=== PATIENT | female | born 1990 | race Caucasian/White ===

== ENCOUNTER → 2020-06-16 15:55 | Outpatient (BNVA) | payer OTHER, SELFPAY | PROVIDERS: PCP Internal Medicine; Visit Provider Obstetrics & Gynecology ==

== ENCOUNTER → 2020-08-26 10:26 | Outpatient (BNVA) | payer OTHER, SELFPAY | PROVIDERS: PCP Internal Medicine; Visit Provider Obstetrics & Gynecology | DX: Z34.90 Encounter for supervision of normal pregnancy, unspecified, unspecified trimester (principal) | CPT/HCPCS: 99212 ==

== ENCOUNTER 2020-08-28 09:52 | Outpatient (REF) | payer OTHER, SELFPAY ==
--- NOTE | ~2020-08-28 | US_ITS ---
EXAMINATION: OBSTETRICAL ULTRASOUND, FIRST TRIMESTER HISTORY: 30-year-old with uncertain LMP Viability date evaluation of LMP: Unknown COMPARISON: None TECHNIQUE: Real time transabdominal imaging with color and M-mode Doppler. FINDINGS: A single, live IUP CRL of 8.2 mm c/w 6.6wks is noted. Heart Rate: 129 beats per minute. Both maternal ovaries are seen and appear normal. GESTATIONAL AGE: 1. GA from LMP: N/A wks 2. GA from AUA: 6.6 wks ESTIMATED DATE OF DELIVERY: 1. CARMINE from LMP: N/A 2. CARMINE from AUA: 04/17/2021 US/US OB <= 14 weeks fetus IMPRESSION: 1. A single live IUP 2. CRL is consistent with 6 weeks and 6 days giving her an CARMINE of 04/17/2021 3. Normal ovaries without free fluid in the cul-de-sac. She is scheduled for the NT evaluation in approximately 6 weeks. Thank you very much for this referral. This note was generated with a voice recognition program. Please excuse any errors which may have been overlooked during my review of this note. Sometimes these errors may affect the content or meaning of a given sentence.
== END 2020-08-28 09:53 | disposition home or self-care (01) ==
LOC: HO.US 09:52
PROVIDERS: PCP Internal Medicine; Visit Provider Obstetrics & Gynecology
DX: Z34.90 Encounter for supervision of normal pregnancy, unspecified, unspecified trimester (principal); Z36.87 Encounter for antenatal screening for uncertain dates
CPT/HCPCS: 76801

== ENCOUNTER → 2020-09-01 11:33 | Outpatient (BNVA) | payer OTHER, SELFPAY | PROVIDERS: PCP Internal Medicine; Visit Provider Obstetrics & Gynecology ==

== ENCOUNTER → 2020-09-03 09:40 | Outpatient (BNVA) | payer OTHER, SELFPAY | PROVIDERS: PCP Internal Medicine; Visit Provider Nurse Practitioner ==

== ENCOUNTER 2020-09-28 09:54 | Outpatient (REF) | payer OTHER, SELFPAY ==
[2020-09-28 12:17] LABS: Hematocrit 41.4 % (37-47); Hemoglobin 13.4 g/dl (12.0-16.0); Mean Corpuscular HGB Conc 32.4 g/dl (31.0-35.0); Mean Corpuscular Hemoglobin 26.1 pg (27.0-33.0); Mean Corpuscular Volume 80.7 fL (80-98); Platelet Count 286 X10*3/uL (160-400); Red Blood Count 5.13 X10*6/uL (4.20-5.50); Red Cell Distribution Width 13.3 % (11.0-16.0); White Blood Count 7.8 X10*3/uL (4.8-10.8)
[2020-09-28 12:44] LABS: Alanine Aminotransferase 14 U/L (0-31); Albumin Level 4.2 g/dL (3.5-5.0); Alkaline Phosphatase 59 U/L (39-117); Anion Gap 12 (12-20); Aspartate Amino Transferase 15 U/L (5-31); Bilirubin Total 0.6 mg/dL (0.0-1.0); Blood Urea Nitrogen 9 mg/dL (9-16); Calcium 9.9 mg/dL (8.4-10.2); Carbon Dioxide 23 mmol/L (22-29); Chloride 104 mmol/L (96-108); Estimated Glomerular Filt Rate > 60; Glucose Random 82 mg/dL (60-115); Sodium 135 mmol/L (135-145); Total Protein 7.4 g/dL (6.5-8.0)
[2020-09-28 12:58] LABS: Syphilis Screen Nonreactive (Nonreactive)
[2020-09-28 13:12] LABS: Amphetamine Screen Urine Not Detected (Not Detect); Barbiturates, Urine Not Detected (Not Detect); Benzodiazepines Screen Urine Not Detected (Not Detect); Cannabinoid Screen Urine POSITIVE (Not Detect); Cocaine Screen Urine Not Detected (Not Detect); Opiate Screen Urine Not Detected (Not Detect); Phencyclidine Screen Urine Not Detected (Not Detect)
[2020-09-29 05:09] LABS: HIV AB/AG Nonreactive (Nonreactive); HIV Num 1 0.09 S/CO (0.00-0.99)
[2020-09-29 05:15] LABS: Hepatitis B Surface Antigen Negative (Negative); ~HepC Num1 0.12 S/CO (0.00-0.79); ~Hepatitis C Antibody Nonreactive (Nonreactive)
[2020-09-29 11:42] LABS: Alpha Fetoprotein 6.3 ng/mL
[2020-09-29 13:16] LABS: Rubella IgG Antibody 3.81 Index
== END 2020-09-28 09:55 | disposition home or self-care (01) ==
LOC: HO.LAB 09:54
PROVIDERS: Nurse Practitioner; PCP Internal Medicine; Visit Provider Advanced Practice Midwife
DX: O26.891 Other specified pregnancy related conditions, first trimester (principal); O99.211 Obesity complicating pregnancy, first trimester; R10.10 Upper abdominal pain, unspecified; R13.12 Dysphagia, oropharyngeal phase; E66.9 Obesity, unspecified; K21.9 Gastro-esophageal reflux disease without esophagitis; K75.81 Nonalcoholic steatohepatitis (NASH); Z3A.11 11 weeks gestation of pregnancy
CPT/HCPCS: 36415; 80053; 80307; 82105; 85027; 86762; 86780; 86787; 86803; 86850; 86900; 86901; 87086; 87340; 87389; 99212

== ENCOUNTER 2020-10-02 08:55 | Outpatient (REF) | payer OTHER, SELFPAY ==
--- NOTE | ~2020-10-02 | US_ITS ---
EXAMINATION: OBSTETRICAL ULTRASOUND, FIRST TRIMESTER HISTORY: 30-year-old at 11.6 weeks of gestation NT screening COMPARISON: 08/28/2020 TECHNIQUE: Real time transabdominal imaging with color and M-mode Doppler. FINDINGS: A single, live IUP CRL of 54.5 mm c/w 12.1wks is noted. Heart Rate: 167 beats per minute. Normal yolk sac seen. NT was 1.9.mm. NB Present The embryo appears sonographically wnl for this GA. Both maternal ovaries are seen and appear normal. GESTATIONAL AGE: 1. Established GA: 11.6 wks 2. GA from AUA: 12.1 wks ESTIMATED DATE OF DELIVERY: 1. Established CARMINE: 04/17/2021 2. CARMINE from AUA: 04/15/2021 US/US OB 1T nuc measure IMPRESSION: 1. A single live IUP 2. Size equals dates 3. NT of 1.9 mm MFM Consultation: I reviewed the ultrasound findings along with significance of NT measurement. The NT of less than 3mm is generally reassuring. However, the sensitivity for T21 detection is only 60%. I reviewed the availability of serum aneuploidy screening which includes cell-free DNA and placental protein based tests. I discussed the sensitivity, false-positive rate, and other limitations associated with each test. I also reviewed the availability of invasive diagnostic tests that are associated small but definite risk of miscarriage. We also reviewed the differences between screening tests and diagnostic tests. After our discussion, she opted for the First trimester screening that is based on cell-free DNA or non-invasive testing (NIPT). The result will be faxed to your office in approximately 7 days. A follow up at 18 weeks for survey has been scheduled. Thank you very much for this referral. Total time 30 minutes. The time spent was devoted to counseling the patient about the disease and diagnosis, coordinating care including reviewing her records, pertinent lab data and studies, as well as discussing diagnostic evaluation and workup, plan therapeutic interventions and future disposition of care. This includes any additional research needed to obtain further information in formulating the plan of care of this patient. This note was generated with a voice recognition program. Please excuse any errors which may have been overlooked during my review of this note. Sometimes these errors may affect the content or meaning of a given sentence.
== END 2020-10-02 08:56 | disposition home or self-care (01) ==
LOC: HO.US 08:55
PROVIDERS: PCP Internal Medicine; Visit Provider Advanced Practice Midwife
DX: Z34.91 Encounter for supervision of normal pregnancy, unspecified, first trimester (principal); Z3A.11 11 weeks gestation of pregnancy
CPT/HCPCS: 76813

== ENCOUNTER 2020-10-14 05:55 | Emergency (ER) | payer OTHER, SELFPAY ==
[2020-10-14 06:28] VITALS: BP 133/81; PULSE 89; RESP 18; TEMP 36.1; O2SAT 98; BMI 40.1
--- NOTE | 2020-10-14 06:34 | ED_ITS ---
HPI - Allergic Reaction General Chief complaint: Allergic Reaction Stated complaint: allergic reaction to medication, 13 weeks Time Seen by Provider: 10/14/20 06:34 Source: patient Mode of arrival: ambulatory Limitations: no limitations History of Present Illness HPI narrative: 13 weeks otherwise healthy tried women's once a day this time for her PNV - no prior ingestions and for the last month has had diffuse hives and bruising - PCP started her on triamcinolone without relief MD complaint: hives and other (bruising) Onset (ago): month(s) (1) Exposure: unknown Symptoms: rash and itching Severity: moderate Treatment prior to arrival: other (topical triamcinolone) Previous Allergic Reaction History: none Related Data Home Medications Medication Instructions Recorded Confirmed sertraline 50 mg tablet 75 mg PO DAILY 06/16/20 10/12/20 prenat.vits,brittney,[id number] 1 tab PO DAILY 09/01/20 10/12/20 Previous Rx's Medication Instructions Recorded cimetidine 400 mg tablet 400 mg PO BEDTIME 30 Days #30 tab 09/03/20 sucralfate 1 gram tablet 2 g PO .daily ac supper 30 Days 09/03/20 #60 tab diphenhydramine HCl 25 mg tablet 25 mg PO Q12H 3 Days #6 tab 10/06/20 betamethasone valerate 0.1 % 1 appl TOPICAL BID 7 Days #45 g 10/08/20 topical cream cetirizine 10 mg tablet 10 mg PO DAILY PRN 30 Days #30 tab 10/12/20 triamcinolone acetonide 0.1 % 1 appl TOPICAL DAILY 10 Days #454 g 10/12/20 topical cream prednisone 40 mg PO DAILY 5 Days #10 tab 10/14/20 Allergies Allergy/AdvReac Type Severity Reaction Status Date / Time fluoxetine [FLUOXETINE] Allergy Severe LOCKJAW, Verified 10/14/20 06:30 jaw locked Penicillins [PENICILLINS] Allergy Intermediate RASH Verified 10/14/20 06:30 penicillin V Allergy Unknown rash Verified 10/14/20 06:30 Review of Systems Review of Systems: Constitutional : No Fever, No Chills ENT/Mouth : no oral swelling, No Hoarseness, No Swallowing Difficulty Eyes: No Eye Pain, No Swelling, No Redness Cardiovascular : No Chest Pain, No SOB Respiratory : No Cough, No Sputum, No Wheezing, No Smoke Exposure, No Dyspnea Gastrointestinal : No Nausea, No Vomiting, No Diarrhea, No abdominal Pain Genitourinary : No Dysuria, No Urinary Frequency, No Hematuria Musculoskeletal : No joint pain, No Myalgias, No Joint Swelling Skin : pos Skin Lesions, positive rash Neuro : No Weakness, No Numbness, No Headache Psych : No Anxiety/Panic, No Depression Heme/Lymph: pos Bruising, No Lymphadenopathy Endocrine : No Polyuria, No Polydipsia All other systems reviewed and are negative [facility] Past Medical History Attestation statement: The following information was validated with the patient. Medical History Anxiety Depression Rash Surgical History H/O esophagogastroduodenoscopy History of surgery Family History Family History Father Diabetes Mother Asthma Maternal Grandmother No problems noted. Son In good health Son In good health Brother Autism Sister In good health Social History Social History Household Members: Significant Other, Family and Children Housing: House Alcohol intake: never Patient Tobacco Use Status: Never used Tobacco Tobacco use type: Cigarette Advance Directives: No Patient : Yes (13 WEEKS) Current occupational status: unemployed Gender identity: female Physical Exam Vital Signs: Vital Signs: Last Vital Signs Temp 96.9 F 10/14/20 06:28 Pulse 89 10/14/20 06:28 Resp 18 10/14/20 06:28 BP 133/81 10/14/20 06:28 Pulse Ox 98 10/14/20 06:28 Body Mass Index 40.1 Appearance: Alert. Oriented X3. No acute distress. Eyes: Pupils equal, round and reactive to light. ENT: Pharynx normal. Neck: Normal inspection. Neck supple. CVS: Normal heart rate and rhythm. Pulses normal. Respiratory: No respiratory distress. Breath sounds normal. Abdomen: Soft and nontender. Skin: Skin warm and dry. areas of linear bruising and stria along with raised papules in large / small groups - patient is covered except for face and neck/hands/feet Extremities: No lower extremity edema. No calf ttp Neuro: Oriented X 3. No motor deficit. No sensory deficit. Course Course Course Narrative: plts coags normal LFTs normal, eosinophils high will start on low dose prednisone for 5 days and refer to OBGYN MDM - Allergic Reaction MDM Narrative Medical decision making narrative: 30 yo female with eruption of bruising/papules unsure if this is PUPP or another dermatologic issue - no mucosal involvement, at this time plts, LFTs ordered she has not seen her OB yet, will likely need oral steroids vs topical steroids at this time, she is 13 weeks has no OB related complaints Lab Data Result diagrams: 10/14/20 07:10/14/20 07:23 Labs: Lab Results 10/14/20 10/14/20 10/14/20 Range/Units 07: 07: 07:23 WBC 7.1 (4.8-10.8) X10*3/uL RBC 4.78 (4.20-5.50) X10*6/uL Hgb 12.6 (12.0-16.0) g/dl Hct 39.0 (37-47) % MCV 81.6 (80-98) fL MCH 26.4 L (27.0-33.0) pg MCHC 32.3 (31.0-35.0) g/dl RDW 13.7 (11.0-16.0) % Plt Count 214 D (160-400) X10*3/uL MPV 9.3 L (9.4-12.3) fL Immature Gran % (Auto) 0.1 (0.0-0.4) % Neut % (Auto) 73.5 H (45-73) % Lymph % (Auto) 14.4 L (20-40) % [place] % (Auto) 6.5 (2-11) % Eos % (Auto) 5.2 H (0-4) % Baso % (Auto) 0.3 (0-2) % Lymph # (Auto) 1.0 L (1.2-4.9) X10*3/uL [place] # (Auto) 0.5 (0.1-1.2) X10*3/uL Eos # (Auto) 0.4 (0.0-0.4) X10*3/uL Baso # (Auto) 0.0 (0.0-0.2) X10*3/uL Abs Immat Gran (auto) 0.01 (0.00-0.03) X10*3/uL Absolute Neuts (auto) 5.2 (2.0-8.3) X10*3/uL Absolute Nucleated RBC 0.000 (0.0-0.012) X10*3/uL Nucleated RBC % (auto) 0.0 (0.0-0.2) /100WBC ESR 17 (0-20) MM/HR PT (9.9-13.0) SEC INR (0.9-1.1) APTT (24.1-38.0) SEC Sodium 137 (135-145) mmol/L Potassium 4.0 (3.3-5.1) mmol/L Chloride 104 (96-108) mmol/L Carbon Dioxide 23 (22-29) mmol/L Anion Gap 14 (12-20) BUN 6 L (9-16) mg/dL Creatinine 0.72 (0.5-1.4) mg/dL Estim Creat Clear Calc 151.7 Estimated GFR > 60 Random Glucose 97 (60-115) mg/dL Calcium 9.3 D (8.4-10.2) mg/dL Total Bilirubin 0.6 (0.0-1.0) mg/dL Direct Bilirubin 0.2 (0.0-0.5) mg/dL AST 15 (5-31) U/L ALT 14 (0-31) U/L Alkaline Phosphatase 52 (39-117) U/L C-Reactive Protein (< or = 0.50) mg/dL Total Protein 6.5 (6.5-8.0) g/dL Albumin 3.6 (3.5-5.0) g/dL 10/14/20 10/14/20 Range/Units 07:23 07:23 WBC (4.8-10.8) X10*3/uL RBC (4.20-5.50) X10*6/uL Hgb (12.0-16.0) g/dl Hct (37-47) % MCV (80-98) fL MCH (27.0-33.0) pg MCHC (31.0-35.0) g/dl RDW (11.0-16.0) % Plt Count (160-400) X10*3/uL MPV (9.4-12.3) fL Immature Gran % (Auto) (0.0-0.4) % Neut % (Auto) (45-73) % Lymph % (Auto) (20-40) % [place] % (Auto) (2-11) % Eos % (Auto) (0-4) % Baso % (Auto) (0-2) % Lymph # (Auto) (1.2-4.9) X10*3/uL [place] # (Auto) (0.1-1.2) X10*3/uL Eos # (Auto) (0.0-0.4) X10*3/uL Baso # (Auto) (0.0-0.2) X10*3/uL Abs Immat Gran (auto) (0.00-0.03) X10*3/uL Absolute Neuts (auto) (2.0-8.3) X10*3/uL Absolute Nucleated RBC (0.0-0.012) X10*3/uL Nucleated RBC % (auto) (0.0-0.2) /100WBC ESR (0-20) MM/HR PT 11.5 (9.9-13.0) SEC INR 1.0 (0.9-1.1) APTT 30.2 (24.1-38.0) SEC Sodium (135-145) mmol/L Potassium (3.3-5.1) mmol/L Chloride (96-108) mmol/L Carbon Dioxide (22-29) mmol/L Anion Gap (12-20) BUN (9-16) mg/dL Creatinine (0.5-1.4) mg/dL Estim Creat Clear Calc Estimated GFR Random Glucose (60-115) mg/dL Calcium (8.4-10.2) mg/dL Total Bilirubin (0.0-1.0) mg/dL Direct Bilirubin (0.0-0.5) mg/dL AST (5-31) U/L ALT (0-31) U/L Alkaline Phosphatase (39-117) U/L C-Reactive Protein 2.14 H (< or = 0.50) mg/dL Total Protein (6.5-8.0) g/dL Albumin (3.5-5.0) g/dL Discharge Plan Discharge Clinical Impression: Hives, Ecchymosis Patient Disposition: Home, Self-Care Instructions: Urticaria (ED) Additional Instructions: return to ED for any worsening symptoms or concerns PLEASE CALL YOUR OBGYN SOON POSSIBLE FOR APPOINTMENT Prescriptions: New prednisone 20 mg tablet 40 mg PO DAILY 5 Days Qty: 10 RF: 0 No Action betamethasone valerate 0.1 % cream 1 appl topical BID 7 Days Qty: 45 RF: 0 diphenhydramine HCl [Benadryl Allergy] 25 mg tablet 25 mg PO Q12H 3 Days Qty: 6 RF: 0 triamcinolone acetonide 0.1 % cream 1 appl topical DAILY 10 Days Qty: 454 RF: 2 cetirizine [Zyrtec] 10 mg tablet 10 mg PO DAILY PRN (Reason: allergy symptoms) 30 Days Qty: 30 RF: 1 sucralfate [Carafate] 1 gram tablet 2 g PO .daily ac supper 30 Days Qty: 60 RF: 3 cimetidine 400 mg tablet 400 mg PO BEDTIME 30 Days Qty: 30 RF: 3 sertraline 50 mg tablet 75 mg PO DAILY RF: 0 prenat.vits,brittney,[id number] Tablet 1 tab PO DAILY RF: 0
[2020-10-14 07:29] LABS: MANUAL DIFF FLAG NO
[2020-10-14 07:30] LABS: Basophils Percent Auto 0.3 % (0-2); Eosinophils Absolute Auto 0.4 X10*3/uL (0.0-0.4); Eosinophils Percent Auto 5.2 % (0-4); Hemoglobin 12.6 g/dl (12.0-16.0); Imm Gran Abs Auto 0.01 X10*3/uL (0.00-0.03); Imm Gran Pct Auto 0.1 % (0.0-0.4); Lymphocytes Percent Auto 14.4 % (20-40); Mean Corpuscular HGB Conc 32.3 g/dl (31.0-35.0); Mean Corpuscular Hemoglobin 26.4 pg (27.0-33.0); Mean Corpuscular Volume 81.6 fL (80-98); Mean Platelet Volume 9.3 fL (9.4-12.3); Monocytes Absolute Auto 0.5 X10*3/uL (0.1-1.2); Monocytes Percent Auto 6.5 % (2-11); Neutrophils Absolute Auto 5.2 X10*3/uL (2.0-8.3); Neutrophils Percent Auto 73.5 % (45-73); Platelet Count 214 X10*3/uL (160-400); Red Blood Count 4.78 X10*6/uL (4.20-5.50); Red Cell Distribution Width 13.7 % (11.0-16.0); White Blood Count 7.1 X10*3/uL (4.8-10.8)
[2020-10-14 07:44] LABS: Prothrombin Time 11.5 SEC (9.9-13.0)
[2020-10-14 07:46] LABS: Partial Thromboplastin Time 30.2 SEC (24.1-38.0)
[2020-10-14 08:00] VITALS: BP 130/77; PULSE 90; TEMP 36.2; O2SAT 100
[2020-10-14 08:04] LABS: C Reactive Protein 2.14 mg/dL (< or = 0.50)
[2020-10-14 08:06] LABS: Alanine Aminotransferase 14 U/L (0-31); Albumin Level 3.6 g/dL (3.5-5.0); Alkaline Phosphatase 52 U/L (39-117); Anion Gap 14 (12-20); Aspartate Amino Transferase 15 U/L (5-31); Bilirubin Direct 0.2 mg/dL (0.0-0.5); Bilirubin Total 0.6 mg/dL (0.0-1.0); Blood Urea Nitrogen 6 mg/dL (9-16); Calcium 9.3 mg/dL (8.4-10.2); Carbon Dioxide 23 mmol/L (22-29); Chloride 104 mmol/L (96-108); Creatinine Clr Calc Pharmacy 151.7; Estimated Glomerular Filt Rate > 60; Glucose Random 97 mg/dL (60-115); Sodium 137 mmol/L (135-145); Total Protein 6.5 g/dL (6.5-8.0)
[2020-10-14 08:27] LABS: Erythrocyte Sedimentation Rate 17 MM/HR (0-20)
== END 2020-10-14 09:06 | disposition home or self-care (01) ==
PROVIDERS: Emergency Provider Emergency Medicine; PCP Internal Medicine
DX: L50.0 Allergic urticaria (principal); R23.3 Spontaneous ecchymoses; F17.210 Nicotine dependence, cigarettes, uncomplicated; Z79.899 Other long term (current) drug therapy; Z71.6 Tobacco abuse counseling
CPT/HCPCS: 36415; 80048; 80076; 85025; 85610; 85652; 85730; 86140; 99284

== ENCOUNTER 2020-10-22 08:56 | Outpatient (REF) | payer OTHER, SELFPAY ==
[2020-10-23 10:18] LABS: BV Int Neg Control Negative (Negative); BV Int Pos Control Positive (Positive)
[2020-10-23 11:46] LABS: CT PCR NOT DETECTED (Not Detect.); NG PCR NOT DETECTED (Not Detect.)
== END 2020-10-22 08:57 | disposition home or self-care (01) ==
LOC: HO.LAB 08:56
PROVIDERS: PCP Internal Medicine; Visit Provider Advanced Practice Midwife
DX: Z36.3 Encounter for antenatal screening for malformations (principal); O99.212 Obesity complicating pregnancy, second trimester; E66.01 Morbid (severe) obesity due to excess calories; O26.892 Other specified pregnancy related conditions, second trimester; R10.9 Unspecified abdominal pain; R19.7 Diarrhea, unspecified; R13.12 Dysphagia, oropharyngeal phase; K21.9 Gastro-esophageal reflux disease without esophagitis; L50.8 Other urticaria; R21 Rash and other nonspecific skin eruption; Z3A.14 14 weeks gestation of pregnancy; Z20.2 Contact with and (suspected) exposure to infections with a predominantly sexual mode of transmission
CPT/HCPCS: 81003; 87480; 87491; 87510; 87591; 87660; 88142; 99212

== ENCOUNTER → 2020-11-19 08:29 | Outpatient (BNVA) | payer OTHER, SELFPAY | PROVIDERS: PCP Internal Medicine; Visit Provider Advanced Practice Midwife | DX: O99.342 Other mental disorders complicating pregnancy, second trimester (principal); F41.8 Other specified anxiety disorders; Z3A.18 18 weeks gestation of pregnancy; Z88.0 Allergy status to penicillin; Z88.8 Allergy status to other drugs, medicaments and biological substances | CPT/HCPCS: 99212 ==

== ENCOUNTER 2020-11-20 10:53 | Outpatient (REF) | payer OTHER, SELFPAY ==
--- NOTE | ~2020-11-20 | US_ITS ---
EXAMINATION: US OBSTETRICAL CLINICAL INFORMATION: 30-year-old at 18.6 weeks of gestation High BMI Screening for anomaly COMPARISON: 10/02/2020 TECHNIQUE: Real-time transabdominal ultrasound was performed using C1-5 megahertz transducer. FINDINGS: A single, active, fetus is seen in vertex presentation. The placenta is anterior without previa, and the amniotic fluid volume is wnl. MEASUREMENTS: 1. Biparietal Diameter: 4.4 cm; 19.4 wks 2. Occipital Frontal Diameter: 5.3 cm 3. Head Circumference: 16.5 cm; 19.2 wks 4. Abdominal Circumference: 14.3 cm; 19.5 wks 5. Femur Length: 2.9 cm; 19.0 wks 6. Humerus Length: 3.0 cm; 19.6 wks 7. Tibia Length: 2.7 cm; 19.5 wks 8. Ulna Length: 2.6 cm; 19.3 wks 9. Lateral ventricle: 0.68 cm 10. Cerebellum: 1.94 cm; 20.0 wks 11. Cisterna Magna: 0.46 cm 12. Nuchal Fold: 3.73 mm 13. Heart Rate: 143 beats per minute Rt ovary: normal Lt ovary: normal Cervical length 4.1 cm on T/A. GESTATIONAL AGE: 1. Established GA: 18.6 wks 2. GA from [facility]: 19.3 wks ESTIMATED DATE OF DELIVERY: 1. Established CARMINE: 04/17/2021 2. CARMINE from [facility]: 04/13/2021 ANATOMY: The visualized anatomy includes but not limited to: 1. Cranium: Normal 2. Intracranial anatomy: cavum septum pellucidi, lateral ventricles, choroid plexus, cerebellum, posterior fossa, third and fourth ventricles. 3. face: orbits, lip/palate, profile, nasal bone 4. Heart: four-chamber view of the heart, ventricular septum, foramen ovale, pulmonary vein, left and right outflow tracts, three-vessel view, 3 vessel trachea view, aortic and ductal arches, situs.. 5. Diaphragm: Normal 6. Abdominal wall: Normal 7. Cord Insertion: Normal 8. Spine: Cervical, thoracic, lumbar, sacral. 9. Stomach: Normal size and shape 10. Right Kidney: Normal 11. Left Kidney: Normal 12. 3 vessel cord: Normal 13. Upper extremity: Open hands, fifth digit. 14. Lower extremity: Tibia, fibula, bilateral feet. 15. Bladder: Normal 16. Genitalia: Male, patient aware US/US OB /maternal detail IMPRESSION: 1. Single, living, intrauterine with appropriate biometry. 2. Normal survey DISCUSSION: I reviewed today's ultrasound findings. We discussed the limitations of ultrasound in diagnosing aneuploidy and other congenital abnormalities. I reviewed the differences between screening test and diagnostic test. Amniocentesis was discussed and declined. She was informed that the baseline incidence of congenital abnormalities is approximately 3-5%. Not all these conditions are diagnosable in utero. RECOMMENDATIONS: 1. Suggest an interval growth evaluation at approximately 24 weeks, for her fundal height evaluation will not be reliable (not scheduled). Thank you for allowing me to participate in her care. This note was generated with a voice recognition program. Please excuse any errors which may have been overlooked during my review of this note. Sometimes these errors may affect the content or meaning of a given sentence.
== END 2020-11-20 10:54 | disposition home or self-care (01) ==
LOC: HO.US 10:53
PROVIDERS: PCP Internal Medicine; Visit Provider Advanced Practice Midwife
DX: Z36.3 Encounter for antenatal screening for malformations (principal); O99.212 Obesity complicating pregnancy, second trimester; E66.01 Morbid (severe) obesity due to excess calories; O26.892 Other specified pregnancy related conditions, second trimester; L50.8 Other urticaria; R21 Rash and other nonspecific skin eruption
CPT/HCPCS: 76811

== ENCOUNTER 2020-12-17 08:07 | Outpatient (REF) | payer OTHER, SELFPAY ==
[2020-12-18 11:40] LABS: BV Int Neg Control Negative (Negative); BV Int Pos Control Positive (Positive)
== END 2020-12-17 08:08 | disposition home or self-care (01) ==
LOC: HO.LAB 08:07
PROVIDERS: PCP Internal Medicine; Visit Provider Advanced Practice Midwife
DX: O26.892 Other specified pregnancy related conditions, second trimester (principal); N89.8 Other specified noninflammatory disorders of vagina; Z3A.22 22 weeks gestation of pregnancy
CPT/HCPCS: 87480; 87510; 87660; 99212

== ENCOUNTER → 2021-01-14 08:28 | Outpatient (BNVA) | payer OTHER, SELFPAY | PROVIDERS: PCP Internal Medicine; Visit Provider Obstetrics & Gynecology | DX: O99.212 Obesity complicating pregnancy, second trimester (principal); Z3A.26 26 weeks gestation of pregnancy | CPT/HCPCS: 99212 ==

== ENCOUNTER 2021-01-22 12:26 | Outpatient (REF) | payer OTHER, SELFPAY ==
--- NOTE | ~2021-01-22 | US_ITS ---
EXAMINATION: OBSTETRICAL ULTRASOUND, Follow up HISTORY: 30-year-old at the 27.6 weeks of gestation Size greater than dates High BMI COMPARISON: 11/20/2020 TECHNIQUE: Real time transabdominal imaging with color and M-mode Doppler. PRESENTATION: Vertex PLACENTA LOCATION: Anterior without previa AMNIOTIC FLUID: Normal MEASUREMENTS: 1. Biparietal Diameter: 7.3 cm; 29.2 wks 2. Head Circumference: 26.97 cm; 29.3 wks 3. Abdominal Circumference: 26.5 cm; 30.5 wks 4. Femur Length: 5.1 cm; 27.3 wks 5. Heart Rate: 132 beats per minute WEIGHT: EFW: 1380 grams (3 lbs 1 oz) -- 90 %. GESTATIONAL AGE: 1. Established GA: 27.6 wks 2. GA from AUA: 29.2 wks ESTIMATED DATE OF DELIVERY: 1. Established CRAMINE: 04/17/2021 2. CARMINE from AUA: 04/07/2021 US/US OB follow up IMPRESSION: 1. A single active fetus is in vertex presentation 2. Size equals dates, EFW corresponds to 98th percentile 3. Normal amniotic fluid volume I reviewed today's findings and discussed the limitations of ultrasound and estimating weights. Although the EFW corresponds to 90th percentile, this does not predict macrosomia at term. No further ultrasound has been scheduled at this time. Thank you very much for this referral. This note was generated with a voice recognition program. Please excuse any errors which may have been overlooked during my review of this note. Sometimes these errors may affect the content or meaning of a given sentence.
== END 2021-01-22 12:27 | disposition home or self-care (01) ==
LOC: HO.US 12:26
PROVIDERS: PCP Student in an Organized Health Care Education/Training Program; Visit Provider Obstetrics & Gynecology
DX: O99.212 Obesity complicating pregnancy, second trimester (principal); E66.9 Obesity, unspecified
CPT/HCPCS: 76816

== ENCOUNTER → 2021-02-01 11:04 | Outpatient (BNVA) | payer OTHER, SELFPAY | PROVIDERS: PCP Student in an Organized Health Care Education/Training Program; Visit Provider Advanced Practice Midwife | DX: O09.43 Supervision of pregnancy with grand multiparity, third trimester (principal); Z36.3 Encounter for antenatal screening for malformations; O99.213 Obesity complicating pregnancy, third trimester; E66.01 Morbid (severe) obesity due to excess calories; Z3A.29 29 weeks gestation of pregnancy; Z23 Encounter for immunization; Z88.0 Allergy status to penicillin; Z88.8 Allergy status to other drugs, medicaments and biological substances; Z79.899 Other long term (current) drug therapy | CPT/HCPCS: 81003; 90686; 99212 ==

== ENCOUNTER 2021-02-19 11:26 | Outpatient (REF) | payer OTHER, SELFPAY ==
--- NOTE | ~2021-02-19 | US_ITS ---
EXAMINATION: OBSTETRICAL ULTRASOUND, Follow up HISTORY: A 30-year-old at the 31.6 weeks of gestation Size greater than dates High BMI COMPARISON: 01/22/2021 TECHNIQUE: Real time transabdominal imaging with color and M-mode Doppler. PRESENTATION: Vertex PLACENTA LOCATION: Anterior without previa AMNIOTIC FLUID: BAR 16.7 cm MEASUREMENTS: 1. Biparietal Diameter: 8.4 cm; 34.0 wks 2. Head Circumference: 30.6 cm; 34.1 wks 3. Abdominal Circumference: 21.3 cm; 25.2 wks 4. Femur Length: 6.1 cm; 21.6 wks 5. Heart Rate: 142 beats per minute WEIGHT: EFW: 2331 grams (5 lbs 2 oz) -- 95 %. BIOPHYSICAL PROFILE: Motion: 2 Tone: 2 Breathin Amniotic Fluid: 2 Total score: 8/8 GESTATIONAL AGE: 1. Established GA: 31.6 wks 2. GA from AUA: 33.6 wks ESTIMATED DATE OF DELIVERY: 1. Established CARMINE: 04/17/2021 2. CARMINE from AUA: 04/03/2021 US/US OB follow up IMPRESSION: 1. A single active fetus is in vertex presentation 2. Size greater than dates, EFW corresponds to 95th percentile 3. Reassuring biophysical profile She has one hour GLT pending. We discussed the limitations of ultrasound and estimating weights. Her follow-up the should be scheduled according to the result of her 1 hour GLT and is clinically indicated. Thank you very much for this referral. This note was generated with a voice recognition program. Please excuse any errors which may have been overlooked during my review of this note. Sometimes these errors may affect the content or meaning of a given sentence.
== END 2021-02-19 11:27 | disposition home or self-care (01) ==
LOC: HO.US 11:26
PROVIDERS: PCP Student in an Organized Health Care Education/Training Program; Visit Provider Advanced Practice Midwife
DX: Z36.3 Encounter for antenatal screening for malformations (principal); O99.213 Obesity complicating pregnancy, third trimester; E66.01 Morbid (severe) obesity due to excess calories; Z3A.31 31 weeks gestation of pregnancy
CPT/HCPCS: 76816; 81003; 99212

== ENCOUNTER → 2021-03-09 10:11 | Outpatient (BNVA) | payer OTHER, SELFPAY | PROVIDERS: PCP Student in an Organized Health Care Education/Training Program; Visit Provider Advanced Practice Midwife | DX: O99.213 Obesity complicating pregnancy, third trimester (principal); Z3A.34 34 weeks gestation of pregnancy; E66.01 Morbid (severe) obesity due to excess calories; Z91.89 Other specified personal risk factors, not elsewhere classified | CPT/HCPCS: 99212 ==

== ENCOUNTER 2021-03-12 09:55 | Outpatient (REF) | payer OTHER, SELFPAY ==
--- NOTE | ~2021-03-12 | US_ITS ---
EXAMINATION: OBSTETRICAL ULTRASOUND, Follow up HISTORY: 30-year-old at 34.6 weeks of gestation Size greater than dates High BMI COMPARISON: 02/19/2021 TECHNIQUE: Real time transabdominal imaging with color and M-mode Doppler. PRESENTATION: Vertex PLACENTA LOCATION: Anterior without previa AMNIOTIC FLUID: Within normal limits, BAR 15.6 cm MEASUREMENTS: 1. Biparietal Diameter: 8.8 cm; 35.5 wks 2. Head Circumference: 36.5 cm; 36.6 wks 3. Abdominal Circumference: 34.7 cm; 38.4 wks 4. Femur Length: 6.8 cm; 34.6 wks 5. Heart Rate: 144 beats per minute WEIGHT: EFW: 3133 grams (6 lbs 15 oz) -- 96 %. BIOPHYSICAL PROFILE: Motion: 2 Tone: 2 Breathin Amniotic Fluid: 2 Total score: 8/8 GESTATIONAL AGE: 1. Established GA: 34.6 wks 2. GA from AUA: 36.4 wks ESTIMATED DATE OF DELIVERY: 1. Established CARMINE: 04/17/2021 2. CARMINE from AUA: 04/05/2021 US/US OB follow up IMPRESSION: 1. A single active fetus is in vertex presentation 2. Size greater than dates, EFW corresponds to 96th percentile. Compared to previous, this represents normal interval growth 3. Reassuring biophysical profile with normal amniotic fluid index. Patient informs me that she is monitoring her fingerstick glucose and is on the GDM diet. However she had normal glucose tolerance test. Reports that her fasting glucose values are all under 95 and the postprandial values are below 120. Unless the estimated weight exceeds the 5000 g, an elective section to prevent shoulder dystocia is not recommended. Thank you very much for this referral. Total time 30 minutes. The time spent was devoted to counseling the patient about the disease and diagnosis, coordinating care including reviewing her records, pertinent lab data and studies, as well as discussing diagnostic evaluation and workup, plan therapeutic interventions and future disposition of care. This includes any additional research needed to obtain further information in formulating the plan of care of this patient. This note was generated with a voice recognition program. Please excuse any errors which may have been overlooked during my review of this note. Sometimes these errors may affect the content or meaning of a given sentence.
== END 2021-03-12 09:56 | disposition home or self-care (01) ==
LOC: HO.US 09:55
PROVIDERS: PCP Internal Medicine; Visit Provider Advanced Practice Midwife
DX: O99.343 Other mental disorders complicating pregnancy, third trimester (principal); F32.A Depression, unspecified; Z3A.34 34 weeks gestation of pregnancy; Z91.89 Other specified personal risk factors, not elsewhere classified
CPT/HCPCS: 59025; 76816; 90471; 90715; 99212

== ENCOUNTER → 2021-03-18 13:57 | Outpatient (BNVA) | payer OTHER, SELFPAY | PROVIDERS: PCP Internal Medicine; Visit Provider Advanced Practice Midwife | DX: O26.893 Other specified pregnancy related conditions, third trimester (principal); Z3A.35 35 weeks gestation of pregnancy | CPT/HCPCS: 59025; 81003; 99212 ==

== ENCOUNTER 2021-03-19 10:51 | Outpatient (REF) | payer OTHER, SELFPAY ==
--- NOTE | ~2021-03-19 | US_ITS ---
EXAMINATION: US OBSTETRICAL (BIOPHYSICAL PROFILE) CLINICAL INFORMATION: 30-year-old at 35.6 weeks of gestation High BMI GDM on diet COMPARISON: 03/12/2021 TECHNIQUE: Biophysical profile is performed over 30 minutes with assessment of breathing, gross body movement, tone, and qualitative amniotic fluid volume. FINDINGS: POSITION: Cephalic PLACENTA: Anterior without previa AMNIOTIC FLUID INDEX: 13.1 cm CARDIAC ACTIVITY: 139 beats per minute BIOPHYSICAL PROFILE: Motion: 2 Tone: 2 Breathin Amniotic Fluid: 2 The total biophysical score is 8/8 US/US OB follow up IMPRESSION: 1. Single intrauterine gestation in vertex position. 2. Reassuring BPP and BAR Patient informs me that she has been monitoring her fingerstick glucose values and following her GDM diet guidelines. Reports that her fastings been in the mid 90s and the postprandials in the 130s. The biometry from last week was not repeated. The EFW was 96th percentile. She is due for repeat growth next week. I briefly reviewed the increased the risk of macrosomia, polyhydramnios and hypoglycemia associated with suboptimally controlled maternal glucose values. Thank you for allowing me to participate in her care. Total time 30 minutes. The time spent was devoted to counseling the patient about the disease and diagnosis, coordinating care including reviewing her records, pertinent lab data and studies, as well as discussing diagnostic evaluation and workup, plan therapeutic interventions and future disposition of care. This includes any additional research needed to obtain further information in formulating the plan of care of this patient. This note was generated with a voice recognition program. Please excuse any errors which may have been overlooked during my review of this note. Sometimes these errors may affect the content or meaning of a given sentence.
== END 2021-03-19 10:52 | disposition home or self-care (01) ==
LOC: HO.US 10:51
PROVIDERS: PCP Internal Medicine; Visit Provider Advanced Practice Midwife
DX: O99.213 Obesity complicating pregnancy, third trimester (principal); E66.01 Morbid (severe) obesity due to excess calories; Z3A.35 35 weeks gestation of pregnancy
CPT/HCPCS: 76816

== ENCOUNTER 2024-02-08 07:55 | Outpatient (REF) | payer OTHER, SELFPAY ==
[2024-02-08 17:20] LABS: CT PCR NOT DETECTED (Not Detect.); NG PCR NOT DETECTED (Not Detect.)
[2024-03-07 13:29] LABS: HPV 16,18/45 See PAP report
== END 2024-02-08 07:56 | disposition home or self-care (01) ==
LOC: HO.LNP 07:55
PROVIDERS: PCP Internal Medicine; Visit Provider Advanced Practice Midwife
DX: Z01.419 Encounter for gynecological examination (general) (routine) without abnormal findings (principal); Z20.2 Contact with and (suspected) exposure to infections with a predominantly sexual mode of transmission
CPT/HCPCS: 87491; 87591; 87624; 88175; 99395

== ENCOUNTER 2024-02-08 07:55 | Outpatient (AMB) | payer OTHER, SELFPAY ==
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
[2024-02-08 08:13] VITALS: BP 124/84; BMI 44.5
== END 2024-02-08 09:06 | disposition home or self-care (01) ==
LOC: HO.HWS 07:56
PROVIDERS: PCP Internal Medicine; Visit Provider Advanced Practice Midwife
DX: Z01.419 Encounter for gynecological examination (general) (routine) without abnormal findings (principal)
CPT/HCPCS: 99395

== ENCOUNTER 2024-07-09 17:15 | Outpatient (AMB) | payer OTHER, SELFPAY ==
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
[2024-07-09 17:19] VITALS: BP 126/82; BMI 43.2
--- OUTSIDE RECORDS SUMMARY | 2024-07-09 19:16 | XMS_ITS | Clinical Summary ---
Author Organization [facility] Address [address] [place] [address] Care Team Providers Care Cryptoanalysis Teacher Name Role Phone Tonya Cameron MD Primary Care Provider [phone] Social History Tobacco Use Types Packs/Day Years Used Date Smoking Tobacco: Never Assessed Comments Unknown Sex and Gender Information Value Date Recorded Sex Assigned at Female 03/18/2024 4:06 PM EST Legal Sex Female 12:21 PM EST Gender Identity Female 03/18/2024 4:06 PM EST Sexual Orientation Not on file Plan of Treatment Health Maintenance Due Date Last Done Comments DTaP,Tdap,and Td Vaccines (1 - Tdap) 07/02/2010 Hepatitis B Vaccines (1 of 3 - 19+ 3-dose series) 07/02/2010 Cervical Cancer Screening: P ap Smear 07/02/2012 Depression Screening 03/01/2022 HIV Screening 03/01/2022 Hepatitis C Screening 03/01/2022 Social Influencers of Health Screening 03/01/2022 COVID-19 Vaccine (1 - 2023-2 5 season) 2023 Influenza Vaccine (#1) 2023 HIB Vaccines Aged Out No longer eligi ble based on patient's age to complete this topic HPV Vaccines Aged Out No longer eligi ble based on patient's age to complete this topic Hepatitis A Vaccines Aged Out No long er eligible based on patient's age to complete this topic IPV Vaccines Aged Out No longer eligi ble based on patient's age to complete this topic MMR Vaccines Aged Out No longer eligi ble based on patient's age to complete this topic Meningococcal ACWY Vaccine Aged Out N o longer eligible based on patient's age to complete this topic Meningococcal B Vaccine Aged Out No l onger eligible based on patient's age to complete this topic Pneumococcal Vaccine: Pediat rics (0 to 5 Years) and At-Risk Patients (6 to 64 Years) Aged Out No longer eligible b ased on patient's age to complete this topic RSV Immunization Patients Un marshall 20 months Aged Out No longer eligible b ased on patient's age to complete this topic Varicella Vaccines Aged Out No longer eligible based on patient's age to complete this topic Care Teams Cryptoanalysis Teacher Relationship Specialty Start Date End Date Tonya Cameron MD [address] [place] [address] , [address] [facility] BYRON Johnston PCP - General Internal Medicine 11/04/18
--- OUTSIDE RECORDS SUMMARY | 2024-07-09 19:16 | XMS_ITS | Data Portability ---
Author Organization [facility], VERNA HARRIS (ProfJulissa) Address [address], [address] [place] [address] Assessment No assessment recorded. Plan of Treatment Reminders Order Date Submit Date Provider Last Modified By Organization Details Last Modified Time Details Appointments None record ed. Lab None record ed. Referral None record ed. Procedures None record ed. Surgeries None record ed. Imaging None record ed. Medication Orders None record ed. Patient TargetsNo targets recorded. Patient InstructionsNo instructions recorded. Reason for Referral None Reported. 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 Medical Equipment None Reported. Medications Name Sig Start Date Stop Date Status Note LastModified by Organization Details LastModified Time cetirizine 10 mg tablet active Not Available Not Available No t Available cimetidine 400 mg tablet active Not Available Not Available No t Available sucralfate 1 gram tablet active Not Available Not Available Not Available prednisone 20 mg tablet active Not Available Not Available No t Available sertraline 100 mg tablet active Not Available Not Available No t Available aspirin 81 mg tablet,delayed release active Not Available Not Available Not Available triamcinolone acetonide 0.1 % topical cream active Not Available Not Availabl e Not Available betamethasone valerate 0.1 % topical cream active Not Available Not Availabl e Not Available Banophen 25 mg tablet active Not Available Not Available Not Available mometasone 0.1 % topical ointment active Not Available Not Available Not Available sertraline 50 mg tablet active Not Available Not Available No t Available Vitamins Plus Low Iron 27 mg iron-1 mg tablet active Not Available Not Available Not Available norethindrone 1 mg-ethin. estradiol 20 mcg (24)-iron 75 mg (4) capsule active Not Available Not Available Not Available Vitals None Recorded Social History None recorded. Functional Status None recorded. Mental Status None recorded. Family History Nothing Reported. Medical History No medical history recorded. Gynecological HistoryNo gynecological history recorded. 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
== END 2024-07-09 17:43 | disposition home or self-care (01) ==
LOC: HO.HMCH 17:16
PROVIDERS: PCP Internal Medicine; Visit Provider Internal Medicine
DX: Z00.00 Encounter for general adult medical examination without abnormal findings (principal); R07.9 Chest pain, unspecified; E66.01 Morbid (severe) obesity due to excess calories; F33.0 Major depressive disorder, recurrent, mild; Z68.41 Body mass index [BMI] 40.0-44.9, adult; R20.2 Paresthesia of skin; F41.1 Generalized anxiety disorder

== ENCOUNTER → 2024-07-09 17:15 | Outpatient (BNVA) | payer OTHER, SELFPAY | PROVIDERS: PCP Internal Medicine; Visit Provider Internal Medicine | DX: Z00.00 Encounter for general adult medical examination without abnormal findings (principal); E66.01 Morbid (severe) obesity due to excess calories; R20.2 Paresthesia of skin; R07.9 Chest pain, unspecified; F33.0 Major depressive disorder, recurrent, mild; F41.1 Generalized anxiety disorder; E78.5 Hyperlipidemia, unspecified | CPT/HCPCS: 96127; 99212; 99395 ==

== ENCOUNTER 2024-07-11 07:38 | Outpatient (REF) | payer OTHER, SELFPAY ==
--- OUTSIDE RECORDS SUMMARY | 2024-07-11 07:42 | XMS_ITS | Data Portability ---
Author Organization [facility], VERNA HARRIS (ProfJulissa) Address [address], [address] [place] [address] Assessment No assessment recorded. 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
--- OUTSIDE RECORDS SUMMARY | 2024-07-11 07:42 | XMS_ITS | Clinical Summary ---
Author Organization [facility] ity Address [address] [place] [address] Care Team Providers Care Head Still Operator Name Role Phone Tonya Cameron MD Primary Care Provider [phone] Social History Tobacco Use Types Packs/Day Years [...] - 2023-2 5 season) 2023 Influenza Vaccine (Season Ended) 2024 HIB Vaccines Aged Out No longer eligi [...] age to complete this topic Care Teams Head Still Operator Relationship Specialty Start Date End Date Tonya Cameron MD [address] [place] [address] , [address] [facility] D/B/A: [facility] BYRON Johnston PCP - General Internal Medicine 11/04/18
[2024-07-11 07:51] LABS: MANUAL DIFF FLAG NO
[2024-07-11 08:38] LABS: Basophils Percent Auto 0.5 % (0-2); Eosinophils Absolute Auto 0.1 X10*3/uL (0.0-0.4); Eosinophils Percent Auto 1.8 % (0-4); Hematocrit 43.6 % (37.0-47.0); Hemoglobin 13.7 g/dl (12.0-16.0); Imm Gran Abs Auto 0.01 X10*3/uL (0.00-0.03); Imm Gran Pct Auto 0.2 % (0.0-0.4); Lymphocytes Absolute Auto 1.5 X10*3/uL (1.2-4.9); Lymphocytes Percent Auto 23.5 % (20-40); Mean Corpuscular HGB Conc 31.4 g/dl (31.0-35.0); Mean Corpuscular Hemoglobin 25.3 pg (27.0-33.0); Mean Corpuscular Volume 80.4 fL (80.0-98.0); Monocytes Absolute Auto 0.6 X10*3/uL (0.1-1.2); Monocytes Percent Auto 8.8 % (2-11); Neutrophils Absolute Auto 4.1 x10*3/uL (2.0-8.3); Neutrophils Percent Auto 65.2 % (45-73); Platelet Count 292 X10*3/uL (160-400); Red Blood Count 5.42 X10*6/uL (4.20-5.50); Red Cell Distribution Width 13.2 % (11.0-16.0); White Blood Count 6.3 X10*3/uL (4.8-10.8)
[2024-07-11 09:12] LABS: Alanine Aminotransferase 24 U/L (0-31); Albumin Level 4.1 g/dL (3.5-5.0); Alkaline Phosphatase 61 U/L (39-117); Anion Gap 11 (12-20); Aspartate Amino Transferase 29 U/L (5-31); Bilirubin Total 0.5 mg/dL (0.0-1.0); Blood Urea Nitrogen 11 mg/dL (9-16); Calcium 9.2 mg/dL (8.4-10.2); Carbon Dioxide 26 mmol/L (22-29); Chloride 106 mmol/L (96-108); Cholesterol 191 mg/dL (<200); Estimated Glomerular Filt Rate > 60; Glucose Fasting 91 mg/dL (60-99); HDL Cholesterol 36 mg/dL (>40); LDL Cholesterol Calculated 110 mg/dL (<100); Potassium 4.3 mmol/L (3.3-5.1); Sodium 139 mmol/L (135-145); Total Protein 7.6 g/dL (6.5-8.0); Triglycerides 227 mg/dL (<150)
[2024-07-11 09:34] LABS: Thyroid Stimulating Hormone 3.42 uIU/mL (0.32-4.0)
== END 2024-07-11 07:39 | disposition home or self-care (01) ==
LOC: HO.LAB 07:38
PROVIDERS: PCP Internal Medicine; Visit Provider Internal Medicine
DX: E66.01 Morbid (severe) obesity due to excess calories (principal); E78.5 Hyperlipidemia, unspecified
CPT/HCPCS: 36415; 80053; 80061; 84443; 85025

== ENCOUNTER 2024-07-23 07:48 | Outpatient (REF) | payer OTHER, SELFPAY ==
--- NOTE | 2024-07-23 07:50 | EMG_ITS ---
PROCEDURES: Bilateral median and ulnar motor and sensory studies were performed. Bilateral radial sensory study was performed and paraspinal muscles were tested with a needle. IMPRESSION: 1. Mild right ulnar neuropathy across cubital tunnel. 2. Mild left mid cervical radiculopathy. 3. No evidence of median neuropathy. MD DINORAH Duarte/WILLIAM / [id number]
--- OUTSIDE RECORDS SUMMARY | 2024-07-23 07:50 | XMS_ITS | Data Portability ---
Author Organization [facility], VERNA HARRIS (ProfJulissa) Address [address], [address] [place] [address] Assessment No assessment recorded. 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
--- OUTSIDE RECORDS SUMMARY | 2024-07-23 07:50 | XMS_ITS | Clinical Summary ---
Author Organization [facility] ity Address [address] [place] [address] Care Team Providers Care Manufacturing Industrial Engineer Name Role Phone Tonya Cameron MD Primary Care Provider [phone] Social History Tobacco Use Types Packs/Day Years [...] age to complete this topic Care Teams Manufacturing Industrial Engineer Relationship Specialty Start Date End Date Tonya Cameron MD [address] [place] [address] , [address] [facility] D/B/A: [facility] BYRON Johnston PCP - General Internal Medicine 11/04/18
--- NOTE | 2024-07-23 07:55 | ECG_ITS ---
Test Reason : cp Blood Pressure : */* mmHG Vent. Rate : 87 BPM Atrial Rate : 87 BPM P-R Int : 146 ms QRS Dur : 92 ms QT Int : 366 ms P-R-T Axes : 35 69 57 degrees QTcB Int : 440 ms Sinus rhythm with occasional Premature ventricular complexes Incomplete right bundle branch block Borderline ECG When compared with ECG of 20-Feb-2019 14:24, Premature ventricular complexes are now Present Referred By: Tonya Cameron Electronically Signed By: JOSE GUADALUPE FALK
== END 2024-07-23 07:49 | disposition home or self-care (01) ==
LOC: HO.NEURO 07:48
PROVIDERS: PCP Internal Medicine; Visit Provider Internal Medicine
DX: R20.2 Paresthesia of skin (principal); R07.9 Chest pain, unspecified
CPT/HCPCS: 93005; 95886; 95913

== ENCOUNTER → 2024-07-23 07:55 | Outpatient (BNV) | payer OTHER, SELFPAY | PROVIDERS: PCP Internal Medicine; Visit Provider Internal Medicine | DX: I49.3 Ventricular premature depolarization (principal); I45.10 Unspecified right bundle-branch block | CPT/HCPCS: 93010 ==

== ENCOUNTER 2024-11-27 08:23 | Outpatient (AMB) | payer OTHER, SELFPAY ==
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
[2024-11-27 08:36] VITALS: BP 130/78; PULSE 79; BMI 41.8
--- OUTSIDE RECORDS SUMMARY | 2024-11-27 08:41 | XMS_ITS | Clinical Summary ---
Author Organization [facility] it Address [address] [place] [address] Care Team Providers Care Baseball Scout Name Role Phone Tonya Cameron MD Primary Care Provider [phone] Social History Tobacco Use Types Packs/Day Years [...] Cervical Cancer Screening: P ap Smear 07/02/2012 HIV Screening 03/01/2022 Hepatitis C Screening 03/01/2022 Social Influencers of Health Screening 03/01/2022 COVID-19 Vaccine (1 - 2023-2 5 season) 2023 Depression Screening 04/03/2024 Influenza Vaccine (#1) 2024 HIB Vaccines Aged Out No longer [...] 5 Years) and At-Risk Patients (6 to 49 Years) Aged Out No longer eligible b ased on patient's age to complete this topic RSV Immunization Patients Un marshall 20 months Aged Out No longer eligible b ased on patient's age to complete this topic Varicella Vaccines Aged Out No longer eligible based on patient's age to complete this topic Care Teams Baseball Scout Relationship Specialty Start Date End Date Tonya Cameron MD [address] [place] [address] , [address] [facility] D/B/A: [facility] BYRON Johnston PCP - General Internal Medicine 11/04/18
== END 2024-11-27 09:23 | disposition home or self-care (01) ==
LOC: HO.HCS 08:23
PROVIDERS: PCP Internal Medicine; Visit Provider Internal Medicine Cardiovascular Disease
DX: I49.3 Ventricular premature depolarization (principal); R07.89 Other chest pain
CPT/HCPCS: 93010; 99204

== ENCOUNTER → 2024-11-27 08:23 | Outpatient (BNVA) | payer OTHER, SELFPAY | PROVIDERS: PCP Internal Medicine; Visit Provider Internal Medicine Cardiovascular Disease | DX: I49.3 Ventricular premature depolarization (principal); R07.89 Other chest pain; I49.8 Other specified cardiac arrhythmias; I45.10 Unspecified right bundle-branch block | CPT/HCPCS: 93005; 99202 ==

== ENCOUNTER → 2025-01-21 08:56 | Outpatient (REF) | payer OTHER, SELFPAY ==
--- NOTE | 2025-01-21 08:59 | CA_ITS ---
Transthoracic Echocardiogram Patient (Last, First, Middle): Anya Martinez, Gender: Female Date of : 1990 Age: 34 Procedure Date: 01/21/2025 Procedure Type: Transthoracic Echocardiogram Location: OP Height: 170.18 cm Weight: 120.66 kg BSA: 2.28 m2 Heart Rate: bpm BP: 130 / 78 mmHg Elementary Education Tutor: SHANICE Referring MD: Davin Blue MD Tank Car Cleaner: Davin Blue MD Symptoms: I49.3 - Ventricular premature depolarization Study Quality: Adequate with contrast ECG Rhythm: Sinus with PVCs Conclusions: - Essentially normal study Findings Procedure Information Contrast agent, definity, is being given per protocol without apparent complications. Left Ventricle Normal left ventricular size, thickness, and systolic function. The visually estimated ejection fraction is between 55-60%. Spectral Doppler is indicative of a normal filling pattern. Right Ventricle Normal right ventricular cavity size and systolic function. Atria Both atria are normal in size. There is no evidence of interatrial shunt. Aortic Valve The aortic valve structure and function is likely normal. There is no aortic valve stenosis. There is no aortic valve regurgitation. Mitral Valve Normal mitral valve structure and function. There is trace mitral valve regurgitation. There is no mitral valve stenosis. Pulmonic Valve The pulmonic valve is likely normal. Tricuspid Valve Normal tricuspid valve structure. Tricuspid regurgitation envelope is inadequate for calculation of right ventricular systolic pressure. Normal right atrial pressure. Great Vessels All visible segments of the aorta are normal in size. The pulmonary artery was not well visualized. Venous The inferior vena cava is normal in size. Pericardium/Pleural There is no evidence of pericardial effusion. Prior Study Comparison No prior study available for comparison. Measurements 2D Linear Measurements IVSd: 0.94 0.6-0.9/0.6-1.0 cm LVIDd: 4.54 3.9-5.3/4.2-5.9 cm LVIDd Index: 1.99 2.4-3.2/2.2-3.1 cm/m2 LVIDs: 2.72 2.0-3.6 cm LVPWd: 0.86 0.7-1.1 cm LA Diam: 3.20 2.7-3.8/3.0-4.0 cm LAIDs Index: 1.40 1.5-2.3 cm/m2 LV Mass: 168.72 67-162/88-224 g LV Mass Index: 74.00 43-95/49-115 g/m2 LVOT Diam: 2.00 3.0+(-)1.3 cm 2D Systolic Function EF 4C: 57.30 >55% EF 2C: 51.80 >55% EF BiP: 55.00 >55% Mitral Valve MV Pk E: 0.79 MV PK A: 0.65 MV Decel Time: 214.00 E/A: 1.20 E'Lateral: 12.00 E'Medial: 9.25 E/E' Med: 8.60 E/E' Lat: 6.60 PHT: 63.00 MVA PHT: 3.49 Decel Davison: 3.71 Aortic Valve AoV Pk Yoan: 1.41 AoV Mn Yoan: 0.98 AoV VTI: 0.31 AoV Pk Grad: 8.00 Aov Mn Grad: 4.00 SHAILA Cont.VTI: 2.12 LVOT LVOT Pk Yoan: 1.03 LVOT Mn Yoan: 0.68 LVOT VTI: 0.21 LVOT Pk Grad: 4.00 LVOT Mn Grad: 2.00 LVOT Diam: 2.00 LVOT Area: 3.14 Diastolic Function MV Pk E: 0.79 MV Pk A: 0.65 E/A: 1.20 E'Medial: 9.25 E/E' Med: 8.60 E' Laterial: 12.00 E/E' Lat: 6.60 Right Ventricle TAPSE (mm): 26.50 TVS' Yoan: 15.80 Tricuspid Valve RA Press: 3.00 Great Vessels Aorta Sinus of Valsalva: 2.78 2.0-3.5 cm Ao Asc: 2.80 2.1-3.4 cm Ao Arch: 2.50 Pulmonary Veins Pulm Vein S/D 1.30 Updated in Other Vendor System with Status of Final Davin Blue MD electronically signed on 01/21/2025 5:00:54 PM with status of Final
--- NOTE | 2025-01-21 08:59 | HM_ITS ---
* Total monitoring time 2 days. * Underlying rhythm is sinus with an average rate of 89/Min. * About 22% of the time, rate > 100/Min. * Rare supraventricular ectopy. * Ventricular ectopy noted with a burden of 1.8%. Rare couplets. * No significant pauses or high-grade AV blocks. * No patient markers or diary events. MTDD
--- NOTE | 2025-01-21 08:59 | CA_ITS ---
Acquisition Time: 2025-01-21 10:02:48 Total Exercise Time: 00:05:30 Test Indications: Abnormal ECG PVC'S Medications: NONE Protocol: SERENITY Max HR: 181 BPM 96% of Pred: 187 BPM Max BP: 170/70 mmHG Max Work Load: 7.0 METS Exercise stress test with exercise 5 mins 30 secs of Serenity Protocol, achieving 98% MPHR, with reports of 9/10 mid chest pressure and SOB, with frequent PVCs mostly in bigeminy pattern that improves with exercise, with normotenisve response to exercise. Without any EKG changes meeting criteria for ischemia. In recovery, pt's breathing returned to baseline and chest pressure improved. Will order stress echo for further eval. Test reviewed with Dr. Blue. Referred By: Davin Blue Electronically Signed By: Scottie Barrios
== END ==
LOC: HO.CARD 08:56
PROVIDERS: PCP Internal Medicine; Visit Provider Internal Medicine Cardiovascular Disease
DX: I49.3 Ventricular premature depolarization (principal); R07.89 Other chest pain
CPT/HCPCS: 93017; 93225; 93306; Q9957

== ENCOUNTER → 2025-01-21 08:59 | Outpatient (BNV) | payer OTHER, SELFPAY | PROVIDERS: PCP Internal Medicine | DX: R94.31 Abnormal electrocardiogram [ECG] [EKG] (principal); R06.02 Shortness of breath; R07.89 Other chest pain; I49.3 Ventricular premature depolarization | CPT/HCPCS: 93016; 93018; 93350; 93352 ==

== ENCOUNTER 2025-01-28 08:36 | Outpatient (AMB) | payer OTHER, SELFPAY ==
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
[2025-01-28 08:39] VITALS: BP 134/80; PULSE 87; BMI 42.7
--- OUTSIDE RECORDS SUMMARY | 2025-01-28 09:21 | XMS_ITS | Clinical Summary ---
Author Organization [facility] ity Address [address] [place] [address] Care Team Providers Care Hose Coupling Joiner Name Role Phone Tonya Cameron MD Primary Care Provider [phone] Social History Tobacco Use Types Packs/Day Years [...] Cervical Cancer Screening: P ap Smear 07/02/2012 HPV Vaccines (1 - 3-dose SCD M series) 07/02/2018 Depression Screening 04/03/2024 COVID-19 Vaccine ( - 2023-2 5 season) 2024 Influenza Vaccine (#1) 2024 RSV Immunization Adult Patie nts (1 - 1-dose 75+ series) 07/02/2066 HIB Vaccines Aged Out No longer eligi [...] age to complete this topic Care Teams Hose Coupling Joiner Relationship Specialty Start Date End Date Tonya Cameron MD [address] [place] [address] , [address] [facility] Associ D/B/A: [facility] BYRON Johnston PCP - General Internal Medicine 11/04/18
== END 2025-01-28 08:59 | disposition home or self-care (01) ==
LOC: HO.HCS 08:37
PROVIDERS: PCP Internal Medicine; Visit Provider Nurse Practitioner Family
DX: R07.9 Chest pain, unspecified (principal); R94.39 Abnormal result of other cardiovascular function study; I49.3 Ventricular premature depolarization
CPT/HCPCS: 99214

== ENCOUNTER → 2025-01-28 08:36 | Outpatient (BNVA) | payer OTHER, SELFPAY | PROVIDERS: PCP Internal Medicine; Visit Provider Nurse Practitioner Family | DX: R00.2 Palpitations (principal); R07.9 Chest pain, unspecified; I49.3 Ventricular premature depolarization; R94.39 Abnormal result of other cardiovascular function study | CPT/HCPCS: 99212 ==

== ENCOUNTER → 2025-02-20 10:50 | Outpatient (REF) | payer OTHER, SELFPAY ==
--- NOTE | 2025-02-20 10:52 | CA_ITS ---
Acquisition Time: 2025-02-20 11:00:02 Total Exercise Time: 00:05:30 Test Indications: Abnormal ECG,Abnormal Treadmill Test Medications: SEE H&P Protocol: SERENITY Max HR: 187 BPM 100% of Pred: 187 BPM Max BP: 220/50 mmHG Max Work Load: 7.0 METS Exercise stress test with exercise 5 mins 30 secs of Serenity Protocol, achieving 100% MPHR, with reports of 4/10 baseline right sided squeezing chest pain that increased to 7/10 throughout the chest with exercise, with reports of SOB, without ant arrythmias, with hypertensive response to exercise - max BP 220/50. Without any EKG changes meetingcriteria for ischemia. In recovery, chest discomfort improved to baseline. Breathing improved and BP retruned to baseline. Echo images obtained by tech at rest and post peak exercise. Definity contrast utilized. Test reviewed with Dr. Reyes. Referred By: Isabela Stephens Electronically Signed By: Scottie Barrios
--- OUTSIDE RECORDS SUMMARY | 2025-02-20 16:20 | XMS_ITS | Clinical Summary ---
Author Organization [facility] ity Address [address] [place] [address] Care Team Providers Care Surgical Tech Name Role Phone Tonya Cameron MD Primary Care Provider [phone] Social History Tobacco Use Types Packs/Day Years [...] Depression Screening 04/03/2024 COVID-19 Vaccine ( - 2024-2 6 season) 2024 Influenza Vaccine (#1) 2024 RSV [...] age to complete this topic Care Teams Surgical Tech Relationship Specialty Start Date End Date Tonya Cameron MD [address] [place] [address] , [address] [facility] BYRON Johnston PCP - General Internal Medicine 11/04/18
== END ==
LOC: HO.CARD 10:50
PROVIDERS: PCP Internal Medicine; Visit Provider Nurse Practitioner Family
DX: R94.39 Abnormal result of other cardiovascular function study (principal); R07.9 Chest pain, unspecified; R94.31 Abnormal electrocardiogram [ECG] [EKG]
CPT/HCPCS: 93350; Q9957

== ENCOUNTER → 2025-02-20 10:52 | Outpatient (BNV) | payer OTHER, SELFPAY | PROVIDERS: PCP Internal Medicine | DX: R07.89 Other chest pain (principal); R06.02 Shortness of breath | CPT/HCPCS: 93016; 93018; 93350; 93352 ==

== ENCOUNTER 2025-03-11 08:27 | Outpatient (AMB) | payer OTHER, SELFPAY ==
[2025-03-11 08:41] VITALS: BP 130/82; PULSE 98; BMI 42.3
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
== END 2025-03-11 09:05 | disposition home or self-care (01) ==
LOC: HO.HCS 08:28
PROVIDERS: PCP Internal Medicine; Visit Provider Nurse Practitioner Family
DX: R07.9 Chest pain, unspecified (principal); R94.39 Abnormal result of other cardiovascular function study; I49.3 Ventricular premature depolarization; R03.0 Elevated blood-pressure reading, without diagnosis of hypertension
CPT/HCPCS: 99214

== ENCOUNTER → 2025-03-11 08:27 | Outpatient (BNVA) | payer OTHER, SELFPAY | PROVIDERS: PCP Internal Medicine; Visit Provider Nurse Practitioner Family | DX: R07.89 Other chest pain (principal); I49.3 Ventricular premature depolarization; R94.39 Abnormal result of other cardiovascular function study; R03.0 Elevated blood-pressure reading, without diagnosis of hypertension | CPT/HCPCS: 99212 ==